=== PATIENT | male | born 1990 ===

== ENCOUNTER 2021-09-30 19:46 | Emergency (ER) | payer SELFPAY ==
[2021-09-30] MEDS ORDERED: NA CHLORIDE 0.9% 500 ML ONE (20:28)
[2021-09-30 20:48] LABS: Absolute Lymphocytes (CBC) 1.8 K/uL (0.7-4.9); Lymphocytes % 21.2 % (15.3-44.8); MPV 8.8 fL (7.6-11.3); RBC Red Blood Cell Count 5.33 M/uL (4.33-5.43)
[2021-09-30 20:49] LABS: Urine Blood Negative (Negative); Urine Glucose Negative (Negative); Urine Protein Negative (Negative); Urine Specific Gravity >=1.030 (1.005-1.030); Urine pH 5.5 (5.0-7.0)
[2021-09-30] MEDS ORDERED: hydrOXYzine HCL 25 MG TAB ONE (21:03)
[2021-09-30 21:04] LABS: Barbiturates NEGATIVE (NEGATIVE); Benzodiazepines NEGATIVE (NEGATIVE); Cocaine NEGATIVE (NEGATIVE); METHAMPHETAM NEGATIVE (NEGATIVE); Methadone NEGATIVE (NEGATIVE); Opiates NEGATIVE (NEGATIVE); Phencyclidine NEGATIVE (NEGATIVE); THC Cannibis POSITIVE (NEGATIVE)
[2021-09-30 21:20] LABS: ALT/SGPT 21 U/L (12-78); AST/SGOT 17 U/L (15-37); Albumin 4.2 g/dL (3.4-5.0); Alkaline Phosphatase 42 U/L (45-117); BUN Blood Urea Nitrogen 15 mg/dL (7-18); Bicarbonate 27 mmol/L (21-32); Bilirubin Direct 0.4 mg/dL (0-0.2); Bilirubin Total 1.9 mg/dL (0.2-1.0); Glucose Level 90 mg/dL (74-106); Potassium 3.6 mmol/L (3.5-5.1); Protein, Total 7.6 g/dL (6.4-8.2); Sodium Level 140 mmol/L (136-145)
[2021-09-30 21:24] LABS: Protime INR 1.64
[2021-09-30] MEDS ORDERED: RISPERIDONE 1 MG TABLET ONE (21:42)
--- NOTE | 2021-09-30 21:46 | ER ---
Nurse's Notes [facility] Name: Eduardo Palumbo Age: 31 yrs Sex: Male : 1990 Arrival Date: 09/30/2021 Time: 19:59 Bed 17 Private MD: Diagnosis: Paranoid schizophrenia;Bipolar disorder, unspecified Presentation: 09/30 20:14 Chief complaint: EMS states: "Pt has hx schizophrenia and bipolar and is having an ab2 episode today. Pt has SI and HI. Pt has not taken his medications in 6 months. Pt has no plan in place. Pt has hx of SI in past with.". Coronavirus screen: Vaccine status: Patient reports being unvaccinated. Client denies travel out of the [place] in the last 14 days. At this time, the client does not indicate any symptoms associated with coronavirus-19. Ebola Screen: Patient negative for fever greater than or equal to 101.5 degrees Fahrenheit, and additional compatible Ebola Virus Disease symptoms Patient denies exposure to infectious person. Patient denies travel to an Ebola-affected area in the 21 days before illness onset. No symptoms or risks identified at this time. Initial Sepsis Screen: Does the patient meet any 2 criteria? No. Patient's initial sepsis screen is negative. Initial Sepsis Screen: Does the patient have a suspected source of infection? No. Patient's initial sepsis screen is negative. Risk Assessment: Do you want to hurt yourself or someone else? Patient reports desire/thoughts of hurting themselves or someone else. Provider notified. Onset of symptoms is unknown. 20:14 Method Of Arrival: EMS: [facility] ab2 20:14 Acuity: ANGELY 2 ab2 Historical: - Allergies: 20:17 No Known Allergies; ab2 - PMHx: 20:17 Schizophrenia; Bipolar disorder; ab2 - Family history:: not pertinent. - Social history:: Smoking status: Patient reports the use of cigarette tobacco products. Screenin:05 Abuse screen: Denies threats or abuse. Nutritional screening: No deficits noted. ss7 Tuberculosis screening: No symptoms or risk factors identified. Fall Risk Assessment: 20:13 General: Appears in no apparent distress. General: Behavior is cooperative, Pt c/o ss7 hearing voices that is talking about depression to him. He states thoughts of suicide come and go. Denies a plan. Denies homicidal ideation.. Neuro: No deficits noted. Cardiovascular: No deficits noted. Respiratory: No deficits noted. GI: No deficits noted. GI: No deficits noted. : No deficits noted. EENT: No deficits noted. Derm: No deficits noted. Musculoskeletal: No deficits noted. 23:04 Reassessment: pt brought to room 17. room cleared of all items. pt given sandwich, sm5 crackers, and a water. pt resting comfortably in bed. 10/01 00:10 Reassessment: belongings given to security. sm5 01:24 Reassessment: pt asleep. sm5 04:43 Reassessment: No changes from previously documented assessment. sm5 09:11 General: Appears in no apparent distress. Behavior is cooperative. Pain: Denies pain. kd3 09:12 Reassessment: pt complaints of having difficulty sleeping, will get pt a breakfast tray kd3 before addressing sleeping issues. pt agrees. 09:45 Reassessment: pt given a sandwich until breakfast tray arrives. pt speaking to [address] for psych eval. 12:55 Reassessment: pt had lunch, is now resting comfortably in bed. kd3 13:34 Reassessment: pt given a sandwich, pt sitting up, comfortably in bed. kd3 14:12 Reassessment: pt mother called, spoke with nurse over the phone. Maria D Steward jd3 [phone]. 16:38 Reassessment: pt showered, pt given snacks and sandwich. pt sitting in bed. kd3 16:41 Reassessment: pt with evening meal tray. kd3 19:46 Reassessment: No changes from previously documented assessment. Patient and/or family tk1 updated on plan of care and expected duration. Pain level reassessed. Patient is alert, oriented x 3, equal unlabored respirations, skin warm/dry/pink. Patient resting with eyes closed. Respirations even and unlabored. Easily aroused. Patient denies pain at this time. 20:48 Reassessment: Patient fed sandwich per request. tk1 20:51 Reassessment: Ronaldo Gallagher, RN sent to monitor patient. tk1 22:00 Reassessment: Patient and/or family updated on plan of care and expected duration. Pain tk1 level reassessed. Patient is alert, oriented x 3, equal unlabored respirations, skin warm/dry/pink. Patient denies pain at this time. 10/02 02:09 Reassessment: No changes from previously documented assessment. Patient and/or family tk1 updated on plan of care and expected duration. Pain level reassessed. Patient denies pain at this time. 05:12 Reassessment: No changes from previously documented assessment. tk1 Psych: 09/30 22:13 [place] Suicide Severity Screening: In the past month, have you wished you were ss7 or wished you could go to sleep and not wake up? Patient responds "yes." "In the past month, have you actually had any thoughts of killing yourself?" Patient responds "yes." "In your lifetime, have you ever done anything, started to do anything, or prepared to do anything to end your life?" Patient responds "yes." Patient reports suicidal intent within 3 past months. Subjective: Patient's mood is sad, Delusions are denied, Hallucinations are auditory, Having thoughts of suicide. Denies suicidal plan. Objective: Patient is cooperative, Speech is normal, Affect is blunted. Interventions: Removed personal items and placed in bag. Patient placed in hospital gown. Searched person for dangerous items. Urine collected and sent for urine drug test. Belonging list filled out. Safety Checks: Personal items have been removed. No visitors are present at this time. Patient uses marijuana Patient uses methamphetamines Last use was 1 weeks ago. Patient uses tobacco. Commitment: Patient will be a voluntary commitment. 22:29 [place] Suicide Severity Screening: Suicidal packet complete and reviewed with charge ss7 nurse, Casandra. Construction Producer aware of 1:1 recommendation. Pt's belongings removed and to be logged with security, room made safe with removal of sharps and cords per protocol. Pt currently in room 24 in plain sight of RN. Pt is calm and cooperative. Changed into paper scrubs. Pt will be transferred to ER room 17 in [facility] with remaining suicidal ideation with no plan. Pt has no current needs. 22:35 Commitment: store warehouse associate notified of SI. At this time there is no additional staff tw5 available to be a sitter. 10/01 19:42 Commitment: Requested sitter from Construction Producer. Awaiting response to see if anyone tw5 is available. 20:30 Commitment: warehouse engineer sent down RN from [facility] as sitter. tw5 Vital Signs: 09/30 19:45 BP 135 / 81; Pulse 85; Resp 20; Pulse Ox 100% on R/A; ss7 20:14 BP 134 / 86; Pulse 85; Resp 18; Temp 98.8(TE); Pulse Ox 100% on R/A; Weight 99.79 kg; ab2 Height 5 ft. 11 in. (180.34 cm); Pain 0/10; 21:15 BP 143 / 80; Pulse 83; Resp 18; Pulse Ox 98% ; ss7 21:15 BP 143 / 80; Pulse 85; Resp 18; Pulse Ox 100% on R/A; ss7 10/01 19:46 BP 137 / 75 LA Supine (auto/reg); Pulse 77 MON; Resp 16 S; Temp 98.2(O); Pulse Ox 100% tk1 on R/A; Pain 0/10; 10/02 08:52 BP 141 / 70; Pulse 75; Resp 16; Pulse Ox 100% ; ll1 09/30 20:14 Body Mass Index 30.68 (99.79 kg, 180.34 cm) ab2 ED Course: 09/30 19:59 Patient arrived in ED. la1 20:09 Isidoro Caicedo MD is Attending Physician. mirella 20:17 Triage completed. ab2 20:21 Acetaminophen Sent. ss7 20:21 Basic Metabolic Panel Sent. ss7 20:21 CBC with Diff Sent. ss7 20:21 ETOH Level Sent. ss7 20:21 Hepatic Function Sent. ss7 20:21 PT-INR Sent. ss7 20:21 Ptt, Activated Sent. ss7 20:22 Salicylate Sent. ss7 20:22 Urine Drug Screen Sent. ss7 22:05 No apparent distress. ss7 22:05 No provider procedures requiring assistance completed. Initial lab(s) drawn, by me, EKG ss7 done, by ED staff, reviewed by Isidoro Caicedo MD COVID swab sent to lab. Strep swab sent to lab. Legal drug screen obtained per protocol. Inserted saline lock: 20 gauge in right antecubital area, using aseptic technique. 22:05 Patient has correct armband on for positive identification. Bed in low position. ss7 Valuables inventory done. Locked in safe. Lights dimmed. Warm blanket given. Pillow given. Diet tray given. PO fluids given. Verbal reassurance given. Patient is placed in psych hold. Patient is placed in psych hold. Assisted with urinal. SI. 22:34 Arm band placed on left wrist. ss7 22:56 Report given to GERALDINE June. Security still needs to collect personal belongings. ss7 23:04 Shaylee Holbrook RN is Primary Nurse. sm5 10/01 08:59 [facility] crisis line called to request screener for this pt. em1 09:45 Dominik from [facility] calls to arrange a FaceTime session with this pt for em1 psychiatric screening and request clinical information be faxed to [phone]. 18:12 Hitesh Ayers NP is PHCP. pm1 19:46 Bed in low position. Call light in reach. Side rails up X2. tk1 10/02 08:31 Santiago Vega MD is Referral Physician. mirella 08:53 Patient did not have IV access during this emergency room visit. ll1 Administered Medications: 09/30 20:36 Drug: NS 0.9% 500 ml Route: IV; Rate: bolus; Site: right antecubital; ss7 21:15 Follow up: BP 143 / 80; Pulse 83 bpm; Resp 18 bpm; Pulse Ox 98% ; IV Status: Completed ss7 infusion 21:40 Follow up: IV Status: Completed infusion; IV Intake: 500ml lr4 22:59 Follow up: Response: No adverse reaction ss7 21:20 Drug: hydrOXYzine 50 mg Route: PO; ss7 21:58 Follow up: Response: No adverse reaction; Anxiety decreased lr4 22:59 Follow up: Response: No adverse reaction ss7 21:45 Drug: RisperDAL (risperiDONE) 2 mg Route: PO; lr4 22:59 Follow up: Response: No adverse reaction ss7 10/01 18:29 Drug: RisperDAL (risperiDONE) 2 mg Route: PO; kd3 19:49 Follow up: Response: Anxiety decreased tk1 18:29 Drug: hydrOXYzine 50 mg Route: PO; kd3 19:49 Follow up: Response: Anxiety decreased tk1 Intake: 09/30 21:40 IV: 500ml; Total: 500ml. lr4 Outcome: 21:46 ER care complete, transfer ordered by MD. vu 02/21 08:31 Discharge ordered by MD. vu 08:52 Discharged to home ambulatory. ll1 08:52 Condition: stable 08:52 Discharge instructions given to patient, Instructed on discharge instructions, follow up and referral plans. no drinking with medication, no driving heavy equipment, medication usage, Demonstrated understanding of instructions, follow-up care, medications, Prescriptions given X 2. 08:53 Patient left the ED. ll1 Signatures: Isidoro Caicedo MD MD cha Martinez, Matthew em1 Shantanu Michelle, HOT SHOT-C HOT SHOT-Cla1 Hitesh Ayers, DIRECTOR OF FAMILY SERVICE CENTER DIRECTOR OF FAMILY SERVICE CENTER pm1 Landon Che, RN RN jd3 Ralf Thurman RN RN ll1 Casandra Baumann tw5 Lucie Cazares, RN RN kd3 Shaylee Holbrook RN RN sm5 Kathy Crow tk1 Ricky Stringer Shana, RN RN ss7 Casi Rojas RN RN lr4
--- NOTE | 2021-09-30 21:46 | EDPHYS ---
Physician Documentation [facility] Name: Eduardo Palumbo Age: 31 yrs Sex: Male : 1990 Arrival Date: 09/30/2021 Time: 19:59 Bed 17 Private MD: ED Physician Isidoro Caicedo HPI: 09/30 21:46 This 31 yrs old Male presents to ER via EMS with complaints of Suicidal mirella Ideation. 21:46 The patient presents to the emergency department with anxiety, psychosis, suicide mirella ideation, and the patient has a plan, to overdose with medications. Onset: The symptoms/episode began/occurred 1 week(s) ago. Past psychiatric history: Prior diagnosis: bipolar disorder, schizophrenia, Psychiatric medications include: none. Associated signs and symptoms: The patient has no apparent associated signs or symptoms. Severity of symptoms: At their worst the symptoms were mild moderate in the emergency department the symptoms are unchanged. The patient has not experienced similar symptoms in the past. Historical: - Allergies: 20:17 No Known Allergies; ab2 - PMHx: 20:17 Schizophrenia; Bipolar disorder; ab2 - Family history:: not pertinent. - Social history:: Smoking status: Patient reports the use of cigarette tobacco products. ROS: 21:46 Constitutional: Negative for fever, chills, and weight loss, Eyes: Negative for injury, mirella pain, redness, and discharge, ENT: Negative for injury, pain, and discharge, Neck: Negative for injury, pain, and swelling, Cardiovascular: Negative for chest pain, palpitations, and edema, Respiratory: Negative for shortness of breath, cough, wheezing, and pleuritic chest pain, Abdomen/GI: Negative for abdominal pain, nausea, vomiting, diarrhea, and constipation, Back: Negative for injury and pain, : Negative for injury, bleeding, discharge, and swelling, MS/Extremity: Negative for injury and deformity, Skin: Negative for injury, rash, and discoloration, Neuro: Negative for headache, weakness, numbness, tingling, and seizure, Allergy/Immunology: Negative for hives, rash, and allergies, Endocrine: Negative for neck swelling, polydipsia, polyuria, polyphagia, and marked weight changes, Hematologic/Lymphatic: Negative for swollen nodes, abnormal bleeding, and unusual bruising. 21:46 Psych: Positive for anxiety, depression, suicidal ideation. Exam: 21:46 Constitutional: This is a well developed, well nourished patient who is awake, alert, mirella and in no acute distress. Head/Face: Normocephalic, atraumatic. Eyes: Pupils equal round and reactive to light, extra-ocular motions intact. Lids and lashes normal. Conjunctiva and sclera are non-icteric and not injected. Cornea within normal limits. Periorbital areas with no swelling, redness, or edema. ENT: Nares patent. No nasal discharge, no septal abnormalities noted. Tympanic membranes are normal and external auditory canals are clear. Oropharynx with no redness, swelling, or masses, exudates, or evidence of obstruction, uvula midline. Mucous membranes moist. Neck: Trachea midline, no thyromegaly or masses palpated, and no cervical lymphadenopathy. Supple, full range of motion without nuchal rigidity, or vertebral point tenderness. No Meningismus. Chest/axilla: Normal chest wall appearance and motion. Nontender with no deformity. No lesions are appreciated. Cardiovascular: Regular rate and rhythm with a normal S1 and S2. No gallops, murmurs, or rubs. Normal PMI, no JVD. No pulse deficits. Respiratory: Lungs have equal breath sounds bilaterally, clear to auscultation and percussion. No rales, rhonchi or wheezes noted. No increased work of breathing, no retractions or nasal flaring. Abdomen/GI: Soft, non-tender, with normal bowel sounds. No distension or tympany. No guarding or rebound. No evidence of tenderness throughout. Back: No spinal tenderness. No costovertebral tenderness. Full range of motion. Male : Normal genitalia with no discharge or lesions. Skin: Warm, dry with normal turgor. Normal color with no rashes, no lesions, and no evidence of cellulitis. MS/ Extremity: Pulses equal, no cyanosis. Neurovascular intact. Full, normal range of motion. Neuro: Awake and alert, GCS 15, oriented to person, place, time, and situation. Cranial nerves II-XII grossly intact. Motor strength 5/5 in all extremities. Sensory grossly intact. Cerebellar exam normal. Normal gait. 21:46 Psych: Behavior/mood is pleasant, cooperative, Affect is calm, Oriented to person, place, time, Patient has no thoughts/intents to harm self or others. Judgement / Insight is normal. Memory is normal. Delusions/hallucinations are not present. 21:52 ECG was reviewed by the Attending Physician. mirella Vital Signs: 19:45 BP 135 / 81; Pulse 85; Resp 20; Pulse Ox 100% on R/A; ss7 20:14 BP 134 / 86; Pulse 85; Resp 18; Temp 98.8(TE); Pulse Ox 100% on R/A; Weight 99.79 kg; ab2 Height 5 ft. 11 in. (180.34 cm); Pain 0/10; 21:15 BP 143 / 80; Pulse 83; Resp 18; Pulse Ox 98% ; ss7 21:15 BP 143 / 80; Pulse 85; Resp 18; Pulse Ox 100% on R/A; ss7 10/01 19:46 BP 137 / 75 LA Supine (auto/reg); Pulse 77 MON; Resp 16 S; Temp 98.2(O); Pulse Ox 100% tk1 on R/A; Pain 0/10; 10/02 08:52 BP 141 / 70; Pulse 75; Resp 16; Pulse Ox 100% ; ll1 09/30 20:14 Body Mass Index 30.68 (99.79 kg, 180.34 cm) ab2 MDM: 09/30 20:09 Patient medically screened. mirella 21:46 Differential diagnosis: drug withdrawal. acute psychotic break, depression, psychosis mirella secondary to non-compliance. Data reviewed: vital signs, nurses notes, lab test result(s), EKG, radiologic studies. Data interpreted: night monitor: rate is 83 beats/min, rhythm is regular, Pulse oximetry: on room air is 98 %. Test interpretation: by ED physician or midlevel provider: ECG, plain radiologic studies. Counseling: I had a detailed discussion with the patient and/or guardian regarding: the historical points, exam findings, and any diagnostic results supporting the discharge/admit diagnosis, lab results, radiology results, the need to transfer to another facility, for higher level of care, [facility] does not immediately have the required specialist. Medication response: hydroxyzine and risperal. 10/01 18:13 ED course: Patient cooperative throughout the day. Reports feeling anxious and would pm1 like to get his Risperdal and hydroxyzine now. 09/30 20:14 Order name: Acetaminophen; Complete Time: 21:38 mirella 09/30 20:14 Order name: Basic Metabolic Panel; Complete Time: 21:38 [facility] 09/30 20:14 Order name: CBC with Diff; Complete Time: :38 [facility] 09/30 20:14 Order name: ETOH Level; Complete Time: 21:38 [facility] 09/30 20:14 Order name: Hepatic Function; Complete Time: 21:38 [facility] 09/30 20:14 Order name: PT-INR; Complete Time: 21:38 [facility] 09/30 20:14 Order name: Ptt, Activated; Complete Time: 21:38 [facility] 09/30 20:14 Order name: Salicylate; Complete Time: 21:38 [facility] 09/30 20:14 Order name: Urine Drug Screen; Complete Time: :38 [facility] 09/30 20:23 Order name: COVID-19/FLU A+B (Document "Date of Onset" if Symptomatic); Complete Time: ss7 15:25 09/30 20:49 Order name: Urine Dipstick-Ancillary EDMS 09/30 20:49 Order name: Urine Dipstick-Ancillary; Complete Time: :38 [facility] 09/30 20:14 Order name: EKG; Complete Time: 20:14 [facility] 09/30 20:14 Order name: EKG - Nurse/Tech; Complete Time: 20:50 [facility] 09/30 20:14 Order name: IV Saline Lock; Complete Time: 20:21 [facility] 09/30 20:14 Order name: Labs collected and sent; Complete Time: 20:21 [facility] 09/30 20:14 Order name: Suicide Screening ([place]); Complete Time: 20:21 [facility] 09/30 20:14 Order name: Urine Dipstick-Ancillary (obtain specimen); Complete Time: 20:21 [facility] 10/01 05:45 Order name: Diet Finger Food; Complete Time: 05:46 tw5 10/01 11:25 Order name: Diet Finger Food; Complete Time: 11:25 em1 10/01 15:31 Order name: Diet Finger Food; Complete Time: 15:31 ll1 10/02 07:26 Order name: Diet Finger Food; Complete Time: 07:26 bd EC/19 21:52 Rate is 83 beats/min. Rhythm is regular. QRS [place] is Normal. [place] interval is normal. QRS mirella interval is normal. QT interval is normal. No Q waves. T waves are Normal. No ST changes noted. Clinical impression: Normal ECG and No evidence of ischemia. Interpreted by me. Reviewed by me. Administered Medications: 20:36 Drug: NS 0.9% 500 ml Route: IV; Rate: bolus; Site: right antecubital; ss7 21:15 Follow up: BP 143 / 80; Pulse 83 bpm; Resp 18 bpm; Pulse Ox 98% ; IV Status: Completed ss7 infusion 21:40 Follow up: IV Status: Completed infusion; IV Intake: 500ml lr4 22:59 Follow up: Response: No adverse reaction ss7 21:20 Drug: hydrOXYzine 50 mg Route: PO; ss7 21:58 Follow up: Response: No adverse reaction; Anxiety decreased lr4 22:59 Follow up: Response: No adverse reaction ss7 21:45 Drug: RisperDAL (risperiDONE) 2 mg Route: PO; lr4 22:59 Follow up: Response: No adverse reaction ss7 10/01 18:29 Drug: RisperDAL (risperiDONE) 2 mg Route: PO; kd3 19:49 Follow up: Response: Anxiety decreased tk1 18:29 Drug: hydrOXYzine 50 mg Route: PO; kd3 19:49 Follow up: Response: Anxiety decreased tk1 Disposition Summary: 10/02/21 08:31 Discharge Ordered Location: Home mirella Problem: new(10/02/21 08:31) mirella Symptoms: have improved(10/02/21 08:31) mirella Condition: Stable(10/02/21 08:31) mirella Diagnosis - Paranoid schizophrenia(10/02/21 08:31) mirella - Bipolar disorder, unspecified mirella Followup: mirella - With: Private Physician - When: 2 - 3 days - Reason: Recheck today's complaints, Continuance of care, Re-evaluation by your physician Followup: mirella - With: Santiago Vega MD - When: 2 - 3 days - Reason: Recheck today's complaints, Re-evaluation by your physician Discharge Instructions: - Discharge Summary Sheet mirella - Schizophrenia mirella - Mixed Bipolar Disorder mirella - Supporting Someone With Bipolar Disorder mirella - Managing Schizophrenia mirella Forms: - Medication Reconciliation Form mirella - Thank You Letter mirella - Antibiotic Education mirella - Prescription Opioid Use mirella Prescriptions: - Risperdal 1 mg Oral tablet - take 1 tablet by ORAL route 2 times per day; 20 tablet; Refills: 0, Product mirella Selection Permitted - Hydroxyzine HCl 50 mg Oral Tablet - take 1 tablet by ORAL route every 8 hours As needed; 30 tablet; Refills: 0, mirella Product Selection Permitted Signatures: Dispatcher [employer] EDIsidoro Ontiveros MD MD cha Marinas, Patrick, NITIN REFINERY OPERATOR CRUDE UNIT pm1 Lucie Cazares, RN RN kd3 Ricky Stringer ab2 Camelia Victoria RN RN ss7 Casi Rojas RN RN lr4 Kathy Crow tk1 Corrections: (The following items were deleted from the chart) 10/02 08:09/30 21:46 to psych [facility] 10/02 08:09/30 21:46 Psych Facility [facility] 10/02 08:09/30 21:46 Higher level of care [facility] 10/02 08:09/30 21:46 Stable [facility] 10/02 08:09/30 21:46 new [facility] 10/02 08:09/30 21:46 have improved [facility] 10/02 08:09/30 21:46 Paranoid schizophrenia [facility] 10/02 08:09/30 21:46 Suicidal ideations mirella mirella
[2021-09-30 22:07] LABS: SARS-COV-2 RT PCR NEGATIVE (NEGATIVE)
[2021-10-01] MEDS ORDERED: RISPERIDONE 1 MG TABLET ONE (18:27)
[2021-10-01] MEDS ORDERED: hydrOXYzine HCL 25 MG TAB ONE (18:28)
[2021-10-02 09:31] VITALS: O2SAT 100
[2021-10-02 09:34] VITALS: TEMP 98.2
[2021-10-02 09:35] VITALS: BP 141/70
== END 2021-10-02 08:53 | disposition home or self-care (01) ==
LOC: ER 19:46
DX: F20.0 Paranoid schizophrenia (principal); Z72.0 Tobacco use
CPT/HCPCS: 0240U; 36415; 80048; 80076; 80307; 80320; 80329; 81003; 85025; 85610; 85730; 93005; 96360; 99285; J7040